=== PATIENT | female | born 1945 ===

== ENCOUNTER 2020-04-09 09:42 | Outpatient (REF) | payer MEDICARE, SELFPAY ==
--- NOTE | 2020-04-09 | MM_ITS ---
EXAMINATION: MM SCREENING DIGITAL BREAST TOMOSYNTHESIS, BILATERAL CLINICAL INFORMATION: Screening. Asymptomatic. The lifetime risk of breast cancer based on the Tyrer-Cuzick Model is 2.4%. COMPARISON: Mammography: April 04, 2019 and studies dating back to May 04, 2012 TECHNIQUE: Digital breast tomosynthesis is performed in both the craniocaudal and mediolateral oblique views along with computer-aided detection (CAD). Synthesized 2D images are generated from the tomosynthesis. FINDINGS: The breasts are heterogeneously dense, which may obscure small masses (ACR BI-RADS breast composition Category c). There are no significant masses, abnormal calcifications, or other abnormalities. MM/MM tomosynthesis screening BI IMPRESSION: There are no significant changes from prior study. ASSESSMENT: BI-RADS 1: Negative RECOMMENDATION: Routine annual mammography screening. This patient's information was entered into a reminder system with a target due date for their next mammogram.
== END 2020-04-09 09:43 | disposition home or self-care (01) ==
LOC: HO.MAMMO 09:42
PROVIDERS: PCP Internal Medicine; Visit Provider Internal Medicine
DX: Z12.31 Encounter for screening mammogram for malignant neoplasm of breast (principal)
CPT/HCPCS: 77063; 77067

== ENCOUNTER 2021-02-20 07:35 | Outpatient (REF) | payer MEDICARE, SELFPAY | END 2021-02-20 07:36 | disposition home or self-care (01) | LOC: HO.HOSX 07:35 | PROVIDERS: Visit Provider Orthopaedic Surgery | DX: M75.102 Unspecified rotator cuff tear or rupture of left shoulder, not specified as traumatic (principal) | CPT/HCPCS: 99202 ==

== ENCOUNTER 2021-08-07 09:28 | Outpatient (REF) | payer MEDICARE, SELFPAY ==
--- NOTE | ~2021-08-07 | MM_ITS ---
EXAMINATION: MM SCREENING DIGITAL BREAST TOMOSYNTHESIS, BILATERAL CLINICAL INFORMATION: Screening. Asymptomatic. The lifetime risk of breast cancer based on the Tyrer-Cuzick Model is 2%. COMPARISON: Mammography: 07/10/2019, 04/04/2019, 01/25/2018 TECHNIQUE: Digital breast tomosynthesis is performed in both the craniocaudal and mediolateral oblique views along with computer-aided detection (CAD). Synthesized 2D images are generated from the tomosynthesis. FINDINGS: There are scattered areas of fibroglandular density (ACR BI-RADS breast composition Category b). There are no significant masses, abnormal calcifications, or other abnormalities. Parenchymal pattern is similar to prior studies. There is no developing density or architectural abnormality. There is fine fibronodular parenchymal pattern similar to prior exams. The axilla and skin contours are unremarkable. No significant changes. MM/MM tomosynthesis screening BI IMPRESSION: No mammographic evidence of malignancy. ASSESSMENT: BI-RADS 1: Negative RECOMMENDATION: Routine annual mammography screening. This patient's information was entered into a reminder system with a target due date for their next mammogram.
== END 2021-08-07 09:29 | disposition home or self-care (01) ==
LOC: HO.MAMMO 09:28
PROVIDERS: Visit Provider Internal Medicine
DX: Z12.31 Encounter for screening mammogram for malignant neoplasm of breast (principal)
CPT/HCPCS: 77063; 77067

== ENCOUNTER 2022-08-13 09:16 | Outpatient (REF) | payer MEDICARE, SELFPAY ==
--- NOTE | ~2022-08-13 | MM_ITS ---
EXAMINATION: MM SCREENING DIGITAL BREAST TOMOSYNTHESIS, BILATERAL CLINICAL INFORMATION: Screening. Asymptomatic. The lifetime risk of breast cancer based on the Tyrer-Cuzick Model is 2.1%. COMPARISON: Mammography: October 07, 2021 and studies dating back to October 21, 2015 TECHNIQUE: Digital breast tomosynthesis is performed in both the craniocaudal and mediolateral oblique views along with computer-aided detection (CAD). Synthesized 2D images are generated from the tomosynthesis. FINDINGS: The breasts are heterogeneously dense, which may obscure small masses (ACR BI-RADS breast composition Category c). There are no significant masses, abnormal calcifications, or other abnormalities. MM/MM tomosynthesis screening BI IMPRESSION: No significant changes ASSESSMENT: BI-RADS 1: Negative RECOMMENDATION: Routine annual mammography screening. This patient's information was entered into a reminder system with a target due date for their next mammogram.
== END 2022-08-13 09:17 | disposition home or self-care (01) ==
LOC: HO.MAMMO 09:16
PROVIDERS: Visit Provider Internal Medicine
DX: Z12.31 Encounter for screening mammogram for malignant neoplasm of breast (principal)
CPT/HCPCS: 77063; 77067

== ENCOUNTER 2023-01-13 11:17 | Emergency (ER) | payer MEDICARE, SELFPAY ==
--- NOTE | ~2023-01-13 | XR_ITS ---
EXAMINATION: XR CHEST CLINICAL INFORMATION: Cough COMPARISON: Chest radiograph from 03/06/2010 TECHNIQUE: 2 views of the chest were obtained. FINDINGS: Blunting of the right costophrenic recess suggesting a small right-sided pleural effusion versus scarring. Chronic interstitial lung markings. No pneumothorax. Trachea is midline. Cardiomediastinal silhouette is not enlarged. Degenerative changes of the thoracolumbar spine. Soft tissues are unremarkable. XR/XR chest 2V IMPRESSION: 1. Blunting of the right costophrenic recess suggesting a small right-sided pleural effusion versus scarring. 2. Chronic interstitial lung markings.
--- NOTE | ~2023-01-13 | XR_ITS ---
EXAMINATION: XR KNEE, RIGHT CLINICAL INFORMATION: Right knee pain. COMPARISON: None available. TECHNIQUE: Four views of the right knee. FINDINGS: Mild tricompartmental degenerative joint changes are seen most pronounced in the medial femoral-tibial compartment. Mild femoral-tibial chondral calcinosis is seen. There is no acute fracture or dislocation. There is no joint effusion. The soft tissues are unremarkable. XR/XR knee RT 2V IMPRESSION: Mild tricompartmental degenerative joint changes most consistent with osteoarthritis.
--- NOTE | ~2023-01-13 | XR_ITS ---
EXAMINATION: XR KNEE, LEFT CLINICAL INFORMATION: Left knee pain. COMPARISON: None available. TECHNIQUE: Four views of the left knee. FINDINGS: Mild tricompartmental degenerative joint changes are seen most pronounced in the medial femoral-tibial compartment with femoral tibial chondrocalcinosis. There is no acute fracture or dislocation. There is no joint effusion. The soft tissues are unremarkable. XR/XR knee LT 2V IMPRESSION: Mild tricompartmental degenerative joint changes most consistent with osteoarthritis. No acute abnormality.
[2023-01-13 11:25] VITALS: BP 145/82; PULSE 97; RESP 18; TEMP 37.2; O2SAT 98; BMI 27.8
--- NOTE | 2023-01-13 11:26 | ED_ITS ---
HPI - General Adult General Chief complaint: General Medical Stated complaint: back pain / knee pain Time Seen by Provider: 01/13/23 13:01 Source: patient Mode of arrival: ambulatory Limitations: no limitations History of Present Illness HPI narrative: Patient comes in the emergency room complaining of bilateral knee pain for 4-5 days. Patient states that about a week ago patient lifted some chairs that she bought, the next day she started having back pain which resolved, then the next day she started having bilateral knee pain. Patient states that she has not had any fever, complaining of some body aches, also complaining of mild dry cough that started around the same time. To the patient's knowledge, she has no history of arthritis. Patient states that at baseline she is very active and likes to go camping. To her knowledge, she has not had any known exposures to ticks Related Data Home Medications Medication Instructions Recorded Confirmed apixaban 5 mg tablet (Eliquis) 5 mg PO BID 02/20/21 azelastine 0.05 % eye drops 1 drp ophthalmic (eye) ONCE 02/20/21 levothyroxine 112 mcg tablet mcg PO 02/20/21 Previous Rx's Medication Instructions Recorded acetaminophen 650 mg 650 mg PO Q8H PRN fever or pain 01/13/23 tablet,extended release #20 tabs tramadol 50 mg tablet 50 mg PO BEDTIME PRN pain #5 tabs 01/13/23 Allergies Allergy/AdvReac Type Severity Reaction Status Date / Time amoxicillin [AMOXICILLIN] Allergy Unknown HIVES Verified 01/13/23 11:25 Iodinated Contrast Media Allergy Unknown HIVES Verified 01/13/23 11:25 [IV DYE, IODINE CONTAINING] meperidine [From DEMEROL] Allergy Unknown SEVERE N/V Verified 01/13/23 11:25 IVP Dye Allergy Unknown unk Uncoded 02/20/21 08:18 Review of Systems Review of Systems: Constitutional : No Weight loss, No Fever, No Chills, No Night Sweats, No Fatigue, No Malaise ENT/Mouth : No Hearing loss, No Ear Pain, No Nasal Congestion, No Sinus Pain, No Hoarseness, No sore throat, No Rhinorrhea, No Swallowing Difficulty Eyes: No Eye Pain, No Swelling, No Redness, No Foreign Body, No Discharge, No Vision Changes Cardiovascular : No Chest Pain, No SOB, No Dyspnea on Exertion, No Orthopnea, No Edema, No Palpitations Respiratory : Complaining of mild dry Cough, No Sputum, No Wheezing, No Smoke Exposure, No Dyspnea Gastrointestinal : No Nausea, No Vomiting, No Diarrhea, No Constipation, No abdominal Pain, No Hematochezia, No Melena Genitourinary : no irregular bleeding, No Dysuria, No Urinary Frequency, No Hematuria, No Urinary Incontinence, No Urgency, No Flank Pain, No Urinary Flow Changes, No Hesitancy Musculoskeletal : Complaining of bilateral knee pain, No Myalgias, No Joint Swelling Skin : No Skin Lesions, No rash Neuro : No Weakness, No Numbness, No Paresthesias, No Loss of Consciousness, No Dizziness, No Headache Psych : No Anxiety/Panic, No Depression, No SI/HI/AH/VH, No Social Issues, Heme/Lymph: No Bruising, No Bleeding,No Lymphadenopathy Endocrine : No Polyuria, No Polydipsia, No Temperature Intolerance PMFSH Past Medical History Medical History History of blood clots Thyroid disorder Surgical History History of kidney surgery Hx laparoscopic cholecystectomy Social History Social History (Updated 02/20/21 @ 08:24 by VELIA Jackson) Alcohol intake: never Patient Tobacco Use Status: Never used Tobacco Advance Directives: No Current occupational status: retired Current occupation: right handed Physical Exam ED Vital Signs: Vital Signs - 24 hr 01/13/23 11:25 Temperature 98.9 F Pulse Rate 97 Respiratory Rate 18 Blood Pressure 145/82 H Pulse Oximetry 98 Oxygen Delivery Method Room Air BMI result Body Mass Index 27.8 Const Other: Appearance: Alert. Oriented X3. No acute distress. Eyes: Pupils equal, round and reactive to light. ENT: Pharynx normal. Neck: Normal inspection. Neck supple. No lymph nodes noted. No crepitus CVS: Normal heart rate and rhythm. Pulses normal. Normal S1 and S2 Respiratory: No respiratory distress. Breath sounds normal. No Wheezing. No rales Abdomen: Soft and nontender. No rigidity. No distention. Skin: Skin warm and dry. Normal skin color. Normal skin turgor. Extremities: No lower extremity edema. Patient has mild bilateral swelling to both knees with no edema, no obvious effusions. Patient's knees are not erythematous, no additional warmth to touch. Patient is able to ambulate with s ome help. Neuro: Oriented X 3. No motor deficit. No sensory deficit. Moving all extremities. No slurred speech. CN 2 through 12 grossly intact Psych: calm, cooperative, normal affect Course Course Course Narrative: RME - 77 y/o with history of PE on Eliquis, hypothyrodism, HTN, s/p nephrectomy in the s who presents to the ER for evaluation of bilateral nontraumatic knee pain and swelling for the last 4 days along with chills, body aches, nausea, dry cough. Started w/ back pain last week having moving chairs which has since resolved. Pain in the knees making it difficult to walk. Normally very active at baseline. No known tick bites but outside often. Plan: lab workup, tick panel, CXR Medical Decision Making Medical Decision Making [facility] Narrative: -my interpretation of labs: White blood cell count 13.1, ESR 86, CRP 16.57, likely an inflammatory process, patient is able to flex and extend the knees, no significant pain to palpation over the knee joints bilaterally, septic joint is not suspected. -my interpretation of bilateral knee x-rays, questionable effusion under the patella, mild osteoarthritis -my interpretation of chest x-ray: No pneumonia -patient declined any pain medication, patient was able to ambulate to the bathroom Differential Diagnosis Differential Diagnoses: The differential diagnosis associated with the presentation includes (Knee effusions, reactive arthritis, tick-borne illnesses, osteoarthritis) Admission/Observation Consideration of admission/observation: Escalation of care including admission/observation considered Lab Data [facility] Lab Attestation statement: I reviewed the patient's lab results. 01/13/23 11:36 01/13/23 11:36 Labs: Lab Results 01/13/23 01/13/23 01/13/23 Range/Units 11:36 11:36 11:36 WBC 13.1 H (4.8-10.8) X10*3/uL RBC 4.55 (4.20-5.50) X10*6/uL Hgb 12.8 (12.0-16.0) g/dl Hct 38.9 (37.0-47.0) % MCV 85.5 (80.0-98.0) fL MCH 28.1 (27.0-33.0) pg MCHC 32.9 (31.0-35.0) g/dl RDW 12.6 (11.0-16.0) % Plt Count 289 (160-400) X10*3/uL MPV 10.3 (9.4-12.3) fL Immature Gran % (Auto) 0.4 (0.0-0.4) % Neut % (Auto) 74.8 H (45-73) % Lymph % (Auto) 14.1 L (20-40) % [place] % (Auto) 10.2 (2-11) % Eos % (Auto) 0.2 (0-4) % Baso % (Auto) 0.3 (0-2) % Lymph # (Auto) 1.9 (1.2-4.9) X10*3/uL [place] # (Auto) 1.3 H (0.1-1.2) X10*3/uL Eos # (Auto) 0.0 (0.0-0.4) X10*3/uL Baso # (Auto) 0.0 (0.0-0.2) X10*3/uL Abs Immat Gran (auto) 0.05 H (0.00-0.03) X10*3/uL Absolute Neuts (auto) 9.8 H (2.0-8.3) x10*3/uL Absolute Nucleated RBC 0.000 (0.0-0.012) X10*3/uL Nucleated RBC % (auto) 0.0 (0.0-0.2) /100WBC ESR 86 H (0-20) MM/HR Sodium 139 (135-145) mmol/L Potassium 4.5 (3.3-5.1) mmol/L Chloride 103 (96-108) mmol/L Carbon Dioxide 24 (22-29) mmol/L Anion Gap 17 (12-20) BUN 14 (9-16) mg/dL Creatinine 0.87 (0.5-1.4) mg/dL Estim Creat Clear Calc 56.9 Estimated GFR > 60 Random Glucose 122 H (60-115) mg/dL Calcium 9.8 (8.4-10.2) mg/dL Magnesium 2.0 (1.6-2.6) mg/dL Total Bilirubin 1.4 H (0.0-1.0) mg/dL Direct Bilirubin 0.5 (0.0-0.5) mg/dL AST 15 (5-31) U/L ALT 12 (0-31) U/L Alkaline Phosphatase 92 (39-117) U/L C-Reactive Protein 16.57 H (< or = 0.50) mg/dL Total Protein 8.2 H (6.5-8.0) g/dL Albumin 4.0 (3.5-5.0) g/dL Independent Interpretation I performed an independent interpretation of an: Plain X-Ray Radiology Impression Discussion of test interpretation with radiology: I have reviewed the radiologist's reading. Radiologist Impression: FINDINGS: Blunting of the right costophrenic recess suggesting a small right-sided pleural effusion versus scarring. Chronic interstitial lung markings. No pneumothorax. Trachea is midline. Cardiomediastinal silhouette is not enlarged. Degenerative changes of the thoracolumbar spine. Soft tissues are unremarkable. XR/XR chest 2V IMPRESSION: 1.? Blunting of the right costophrenic recess suggesting a small right-sided pleural effusion versus scarring. 2.? Chronic interstitial lung markings. FINDINGS: Mild tricompartmental degenerative joint changes are seen most pronounced in the medial femoral-tibial compartment. Mild femoral-tibial chondral calcinosis is seen. There is no acute fracture or dislocation. There is no joint effusion. The soft tissues are unremarkable.? XR/XR knee RT 2V IMPRESSION: Mild tricompartmental degenerative joint changes most consistent with osteoarthritis. Discharge Plan Discharge Clinical Impression: Osteoarthritis of both knees Patient Disposition: Home, Self-Care Instructions: Osteoarthritis (ED) Additional Instructions: Please follow-up with your primary care physician tomorrow. If you have any worsening or new symptoms, please return to the emergency room or call 911 Prescriptions: New acetaminophen 650 mg tablet extended release 650 mg PO Q8H PRN (Reason: fever or pain) Qty: 20 0RF tramadol 50 mg tablet 50 mg PO BEDTIME PRN (Reason: pain) Qty: 5 0RF No Action Eliquis 5 mg tablet 5 mg PO BID levothyroxine 112 mcg tablet PO azelastine 0.05 % drops 1 drp ophthalmic (eye) ONCE
[2023-01-13 11:42] LABS: MANUAL DIFF FLAG NO
[2023-01-13 11:50] LABS: Basophils Percent Auto 0.3 % (0-2); Eosinophils Percent Auto 0.2 % (0-4); Hematocrit 38.9 % (37.0-47.0); Hemoglobin 12.8 g/dl (12.0-16.0); Imm Gran Abs Auto 0.05 X10*3/uL (0.00-0.03); Imm Gran Pct Auto 0.4 % (0.0-0.4); Lymphocytes Absolute Auto 1.9 X10*3/uL (1.2-4.9); Lymphocytes Percent Auto 14.1 % (20-40); Mean Corpuscular HGB Conc 32.9 g/dl (31.0-35.0); Mean Corpuscular Hemoglobin 28.1 pg (27.0-33.0); Mean Corpuscular Volume 85.5 fL (80.0-98.0); Mean Platelet Volume 10.3 fL (9.4-12.3); Monocytes Absolute Auto 1.3 X10*3/uL (0.1-1.2); Monocytes Percent Auto 10.2 % (2-11); Neutrophils Absolute Auto 9.8 x10*3/uL (2.0-8.3); Neutrophils Percent Auto 74.8 % (45-73); Platelet Count 289 X10*3/uL (160-400); Red Blood Count 4.55 X10*6/uL (4.20-5.50); Red Cell Distribution Width 12.6 % (11.0-16.0); White Blood Count 13.1 X10*3/uL (4.8-10.8)
[2023-01-13 11:58] LABS: Alanine Aminotransferase 12 U/L (0-31); Alkaline Phosphatase 92 U/L (39-117); Anion Gap 17 (12-20); Aspartate Amino Transferase 15 U/L (5-31); Bilirubin Direct 0.5 mg/dL (0.0-0.5); Bilirubin Total 1.4 mg/dL (0.0-1.0); Blood Urea Nitrogen 14 mg/dL (9-16); C Reactive Protein 16.57 mg/dL (< or = 0.50); Calcium 9.8 mg/dL (8.4-10.2); Carbon Dioxide 24 mmol/L (22-29); Chloride 103 mmol/L (96-108); Creatinine Clr Calc Pharmacy 56.9; Estimated Glomerular Filt Rate > 60; Glucose Random 122 mg/dL (60-115); Potassium 4.5 mmol/L (3.3-5.1); Sodium 139 mmol/L (135-145); Total Protein 8.2 g/dL (6.5-8.0)
[2023-01-13 12:22] LABS: Erythrocyte Sedimentation Rate 86 MM/HR (0-20)
[2023-01-15 05:33] LABS: Lyme Abs Screen <0.90 index
[2023-01-15 21:19] LABS: A. Phagocytphilium DNA,RT-PCR NOT DETECTED (NOT DETECTED); Babesia Microti DNA, RT-PCR NOT DETECTED (NOT DETECTED); Borrelia Miyamotoi,DNA RT-PCR NOT DETECTED (NOT DETECTED); E.Chaffeensis DNA RT-PCR NOT DETECTED (NOT DETECTED); Lyme(Borrelia ssp)DNA RT-PCR NOT DETECTED (NOT DETECTED)
== END 2023-01-13 15:16 | disposition home or self-care (01) ==
PROVIDERS: Physician Assistant; Emergency Provider Emergency Medicine; PCP Internal Medicine
DX: M54.50 Low back pain, unspecified (principal); M25.562 Pain in left knee; M25.561 Pain in right knee; R05.9 Cough, unspecified; Z79.899 Other long term (current) drug therapy
CPT/HCPCS: 36415; 71046; 73560; 80048; 80076; 83735; 85025; 85652; 86140; 86617; 86618; 87798; 87801; 99283; 99284

== ENCOUNTER 2023-02-15 08:54 | Outpatient (RCR) | payer MEDICARE, SELFPAY ==
[2023-02-15 08:58] VITALS: BP 158/90; PULSE 83; O2SAT 99
--- NOTE | 2023-02-15 10:35 | MHC.PT.EP ---
[facility] [place] [facility] [place] [facility] [place] Office [address] Sofiya Royal [address] [phone] F: [phone] F: [phone] F: [phone] F: [phone] Physical Therapy Plan of Care Date of Evaluation: 02/15/23 Date of Surgery: Diagnosis: This is a 77 yo female presenting to skilled PT with a script for vertigo. Assessment: This is a 77 yo female presenting to skilled PT with a script for vertigo. Patient reporting that for the past 6 months she has been having buzzing in her L ear, I can feel the crystals bouncing around . She went to Dr. Sullivan and had a hearing test done and cleaned her ears which were both normal. She had one attack when she bent over the sink and was very dizzy back in December however this has not happened since. She reports that her symptoms described as rocks bouncing around , it turns my stomach , I get dizzy/lightheaded , unbalance . Denies not noting symptoms during positional changes. Denies imaging, medication regiment or new blood work. Examination shows normal oculomotor tests, (-) VBI B, and WFL cervical AROM. She was (-) for BPPV with joie-hallpike B and roll test B. Balance was normal statically with Jeannette and with movement during DGI. S/S are not consistent with BPPV however patient was noted to have high BP readings throughout our session. She reports that she is supposed to take a BP medication but has not been. I educated her to take her BP again at home and talk to her PCP about her BP. Unless symptoms change patient would not benefit from PT at this time. She was educated to call our office if needed within the next 30 days. Frequency and Duration: The patient will be seen Short Term Goals: NA Cabin Supervisor Goals: NA Treatment Plan: Modalities to reduce pain, spasms and effusion. Manual therapy to restore motion and function. Therapeutic exercise to improve strength and flexibility. Neuromuscular re-education for posture and balance. Therapeutic activities to return to functional activities of daily living. Electronically signed by: Marina Kelly PT Please sign and return to therapist. Thank you for your referral.
--- NOTE | 2023-03-17 08:30 | MHC.PT.DC ---
[facility] [place] Office [place] Office [place] Office [address] Sofiya Royal [address] [phone] F: [phone] F: [phone] F: [phone] F: [phone] Physical Therapy Discharge Report Diagnosis: This is a 77 yo female presenting to skilled PT with a script for vertigo. Date of Surgery: Date of Evaluation: 02/15/23 Date of Discharge: 03/17/23 Treatments to Date: 1 Cancellations to Date: 0 No Shows to Date: 0 Discharge Status: Recommend MD Follow-up Discharge Summary: This is a 77 yo female presenting to skilled PT with a script for vertigo. Patient reporting that for the past 6 months she has been having buzzing in her L ear, I can feel the crystals bouncing around . She went to Dr. Sullivan and had a hearing test done and cleaned her ears which were both normal. She had one attack when she bent over the sink and was very dizzy back in December however this has not happened since. She reports that her symptoms described as rocks bouncing around , it turns my stomach , I get dizzy/lightheaded , unbalance . Denies not noting symptoms during positional changes. Denies imaging, medication regiment or new blood work. Examination shows normal oculomotor tests, (-) VBI B, and WFL cervical AROM. She was (-) for BPPV with joie-hallpike B and roll test B. Balance was normal statically with Jeannette and with movement during DGI. S/S are not consistent with BPPV however patient was noted to have high BP readings throughout our session. She reports that she is supposed to take a BP medication but has not been. I educated her to take her BP again at home and talk to her PCP about her BP. Unless symptoms change patient would not benefit from PT at this time. She was educated to call our office if needed within the next 30 days. Electronically signed by: Marina Kelly PT Please sign and return to therapist. Thank you for your referral.
== END 2023-03-17 08:30 | disposition home or self-care (01) ==
LOC: HO.PTCHIC 08:54
PROVIDERS: PCP Internal Medicine; Visit Provider Otolaryngology
DX: R42 Dizziness and giddiness (principal)
CPT/HCPCS: 97110; 97162

== ENCOUNTER 2023-08-20 09:46 | Emergency (ER) | payer MEDICARE, SELFPAY ==
--- NOTE | ~2023-08-20 | CT_ITS ---
EXAMINATION: CT ABDOMEN AND PELVIS WITHOUT CONTRAST CLINICAL INFORMATION: Lower abdominal pain. Query diverticulitis. COMPARISON: CT abdomen pelvis dated 11/13/2011. TECHNIQUE: Multidetector volumetric imaging was performed from the superior aspect of the liver through the pubic symphysis. Sagittal and coronal reformatted images were obtained on the technologist's workstation. This CT examination was performed using dose optimization techniques as appropriate, variously including the following: *Automated exposure control *Adjustment of mA and/or kV according to patient size (this includes techniques or standardized protocols for targeted exams where dose is matched to indication/reason for exam; i.e. extremities or head) *Use of iterative reconstruction technique DLP: 574 mGy-cm FINDINGS: LUNG BASES: There is a partially visualized scar at the right lung base laterally. The lung bases are otherwise clear. No pleural effusion. Heart size is normal. No pericardial effusion. LIVER, GALLBLADDER, AND BILIARY TREE: The liver is normal in size, shape, and attenuation. No focal hepatic lesion or biliary ductal dilatation is present. The gallbladder is surgically absent. PANCREAS: Unremarkable. SPLEEN: Unremarkable. ADRENAL GLANDS: Unremarkable. KIDNEYS AND URETERS: The right kidney is surgically absent. The left kidney is normal in size, shape, and attenuation. No hydronephrosis, hydroureter, or calculi seen. No perinephric stranding. BLADDER: Unremarkable. GASTROINTESTINAL TRACT: The small and large bowel are normal in caliber. There is sigmoid colon diverticulosis. There is evidence of acute sigmoid colon diverticulitis characterized by pericolonic inflammatory stranding and mild colonic wall thickening best illustrated on images #[id number], series #2. There is no evidence of gross perforation. There is no fluid collection. The appendix is is not definitively identified. ABDOMINAL WALL: No significant hernia is appreciated. LYMPH NODES: No abdominal or pelvic lymphadenopathy by size criteria. VASCULAR: No abdominal aortic aneurysm. There is mild calcific atherosclerotic disease. PELVIC VISCERA: Unremarkable. No adnexal mass. OSSEOUS STRUCTURES: There are degenerative changes of the spine. CT/CT abdomen pelvis wo IV con IMPRESSION: Acute sigmoid colon diverticulitis. There is no evidence of gross perforation. There is no fluid collection. Fleischner guidelines were followed.
[2023-08-20 09:47] VITALS: BP 153/84; PULSE 95; RESP 18; TEMP 36.8; O2SAT 98; BMI 28.2
[2023-08-20 10:04] LABS: MANUAL DIFF FLAG NO
[2023-08-20 10:07] LABS: Basophils Percent Auto 0.3 % (0-2); Eosinophils Absolute Auto 0.1 X10*3/uL (0.0-0.4); Eosinophils Percent Auto 0.5 % (0-4); Hematocrit 40.1 % (37.0-47.0); Hemoglobin 13.3 g/dl (12.0-16.0); Imm Gran Abs Auto 0.05 X10*3/uL (0.00-0.03); Imm Gran Pct Auto 0.3 % (0.0-0.4); Lymphocytes Absolute Auto 1.9 X10*3/uL (1.2-4.9); Lymphocytes Percent Auto 12.7 % (20-40); Mean Corpuscular HGB Conc 33.2 g/dl (31.0-35.0); Mean Corpuscular Hemoglobin 28.1 pg (27.0-33.0); Mean Corpuscular Volume 84.8 fL (80.0-98.0); Mean Platelet Volume 10.2 fL (9.4-12.3); Monocytes Absolute Auto 1.2 X10*3/uL (0.1-1.2); Neutrophils Absolute Auto 11.5 x10*3/uL (2.0-8.3); Neutrophils Percent Auto 78.2 % (45-73); Platelet Count 237 X10*3/uL (160-400); Red Blood Count 4.73 X10*6/uL (4.20-5.50); Red Cell Distribution Width 13.6 % (11.0-16.0); White Blood Count 14.7 X10*3/uL (4.8-10.8)
[2023-08-20 10:20] LABS: Alanine Aminotransferase 12 U/L (0-31); Albumin Level 4.1 g/dL (3.5-5.0); Alkaline Phosphatase 91 U/L (39-117); Anion Gap 13 (12-20); Aspartate Amino Transferase 14 U/L (5-31); Bilirubin Total 1.8 mg/dL (0.0-1.0); Blood Urea Nitrogen 10 mg/dL (9-16); Calcium 9.4 mg/dL (8.4-10.2); Carbon Dioxide 25 mmol/L (22-29); Chloride 108 mmol/L (96-108); Creatinine Clr Calc Pharmacy 50.3; Estimated Glomerular Filt Rate 53; Glucose Random 133 mg/dL (60-115); Lipase 15 U/L (8-78); Potassium 3.9 mmol/L (3.3-5.1); Sodium 142 mmol/L (135-145); Total Protein 7.8 g/dL (6.5-8.0)
[2023-08-20 11:25] LABS: Appearance Urine Cloudy; Color Urine Dark Yellow; Glucose Urine UA Negative (Negative); Leukocyte Esterase Urine Large (3+) (Negative); Nitrite Urine Negative (Negative); PH 5.5 (5.0-9.0); UMIC TRIGGER UACC YES; Urine Blood Moderate (2+) (Negative); Urine Ketones Trace mg/dL (Negative); Urine Protein 30 (1+) mg/dL (Neg-Trace)
[2023-08-20 11:33] LABS: Bacteria Urine None Seen (None Seen); UACC Culture Trigger YES; WBC Urine >50 /HPF (0-5)
[2023-08-20 12:24] LABS: Influenza A PCR NEGATIVE (Negative); Influenza B PCR NEGATIVE (Negative); Resp Syncy Virus RNA Qual PCR NEGATIVE (Negative); SARS COV2 PCR INHOUSE NEGATIVE (Negative)
[2023-08-20 14:53] VITALS: BP 180/93; PULSE 95; RESP 18; TEMP 37.1; O2SAT 98
--- NOTE | 2023-08-20 14:53 | ED.ABDPAIN ---
HPI - Abdominal Pain General Chief Complaint: Abdominal Pain Stated Complaint: abd pain Time Seen by Provider: 08/20/23 18:03 Source: patient and family Mode of arrival: ambulatory Limitations: no limitations History of Present Illness HPI narrative: 78-year-old female with a past medical history of hypothyroidism, hypertension, history of DVT/PE on Eliquis , solitary kidney presents to the ER with 2 days of lower abdominal pain with no associated fever, vomiting, constipation, diarrhea or urinary symptoms. Her last BM was yesterday and normal. She does have a history of having a cholecystectomy but denies any other abdominal surgical history. Related Data Home Medications Medication Instructions Recorded Confirmed apixaban 5 mg tablet (Eliquis) 5 mg PO BID 02/20/21 azelastine 0.05 % eye drops 1 drp ophthalmic (eye) ONCE 02/20/21 levothyroxine 112 mcg tablet mcg PO 02/20/21 Previous Rx's Medication Instructions Recorded acetaminophen 650 mg 650 mg PO Q8H PRN fever or pain 01/13/23 tablet,extended release #20 tabs tramadol 50 mg tablet 50 mg PO BEDTIME PRN pain #5 tabs 01/13/23 levofloxacin 500 mg tablet 500 mg PO Q24H 7 days #7 tabs 08/20/23 metronidazole 500 mg tablet 500 mg PO BID 7 days #14 tabs 08/20/23 Allergies Allergy/AdvReac Type Severity Reaction Status Date / Time amoxicillin [AMOXICILLIN] Allergy Unknown HIVES Verified 08/20/23 09:52 Iodinated Contrast Media Allergy Unknown HIVES Verified 08/20/23 09:52 [IV DYE, IODINE CONTAINING] meperidine [From DEMEROL] Allergy Unknown SEVERE N/V Verified 08/20/23 09:52 IVP Dye Allergy Unknown unk Uncoded 02/20/21 08:18 Review of Systems Review of Systems Yes all other systems are reviewed and are negative Constitutional: Reports no additional constitutional complaints, Denies body ache(s), Denies chills, Denies fever(s), Denies headache(s) and Denies weakness Eyes: Reports no additional eye complaints and Denies change in vision Reports system reviewed and no additional complaints, except as documented, Denies dizziness, Denies headache(s), Denies nasal congestion, Denies nasal discharge and Denies neck pain Cardiovascular: Reports no additional cardiovascular complaints, Denies chest pain, Denies leg edema and Denies dyspnea Respiratory: Reports no additional respiratory complaints, Denies cough and Denies dyspnea Gastrointestinal: Reports no additional gastrointestinal complaints, Reports abdominal pain, Denies diarrhea, Denies nausea and Denies vomiting Genitourinary: Reports no additional female genitourinary complaints and Denies urinary incontinence Musculoskeletal: Reports no additional musculoskeletal complaints, Denies back pain, Denies arthralgias, Denies joint swelling, Denies neck pain, Denies numbness and Denies tingling Skin/Breast: Reports system reviewed and no additional complaints, except as docu and Denies rash Reports system reviewed and no additional complaints, except as documented, Denies Abnormal speech present, Denies dizziness, Denies headache(s), Denies numbness, Denies tingling and Denies weakness PMFSH Past Medical History Attestation statement: The following information was validated with the patient. Source: old records reviewed and nursing notes reviewed Medical History History of blood clots Thyroid disorder Surgical History History of kidney surgery Hx laparoscopic cholecystectomy Social History Social History Alcohol intake: never Patient Tobacco Use Status: Never used Tobacco Use of substances other than those prescribed or required for medical reasons: No Advance Directives: No Advance Directives Information Provided: No Current occupational status: retired Current occupation: right handed Physical Exam ED Vital Signs: Vital Signs - 24 hr 08/20/23 09:47 08/20/23 14:53 08/20/23 19:18 Temperature 98.3 F 98.8 F 97.9 F Pulse Rate 95 95 84 Respiratory Rate 18 18 17 Blood Pressure 153/84 H 180/93 H 140/68 H Pulse Oximetry 98 98 95 Oxygen Delivery Method Room Air Room Air Room Air 08/20/23 20:59 Temperature 97.8 F Pulse Rate 80 Respiratory Rate 17 Blood Pressure 165/82 H Pulse Oximetry 98 Oxygen Delivery Method Room Air BMI result Body Mass Index 28.2 Const General: cooperative, healthy appearing, comfortable and no acute distress Orientation/consciousness: patient oriented x3 Limitations: no limitations HENMT Head: Yes normal to inspection Ears: hearing grossly normal bilaterally General nose exam: Normal external nose present Face and sinus: Yes normal facial exam Mouth: Normal oral and palatal mucosa present Throat: Yes posterior oropharynx normal Eyes General: appearance normal, both eyes and all related structures Pupils: Equal, round and reactive pupils present Neck Neck: Yes normal visual inspection Chest Chest palpation & inspection: normal inspection of the chest Resp Effort & Inspection: normal respiratory effort Auscultation: clear to auscultation bilaterally Cardio Rate: regular rate Rhythm: regular rhythm Peripheral pulses: Peripheral pulses 2+ throughout GI Inspection: Yes normal to inspection Palpation (GI): Soft to palpation and Tenderness to palpation present (GI) (Diffusely tender more focal in the lower quadrants with no rebound or guard) Auscultation: normal bowel sounds Back/Spine/Pelvis Thoracic/Lumbar Spine: thoracic and lumbar spine normal to inspection Skin General skin exam: no rashes or lesions noted Neuro General: patient oriented x3, no focal motor deficits and normal sensation to monofilament Cranial nerves: Yes Equal, round and reactive pupils present Cognition (Neuro): normal cognition Speech: No Abnormal speech present Gait exam (Neuro): Normal gait present Motor exam (neuro): 5/5 motor strength present throughout Extrem General: Yes normal to inspection Course Course Course Narrative: This is an RME: Additional HPI, ROS, PE not included below will be deferred to primary provider. Patient is a 78 year old female presenting for ABD pain, diffuse lower pain with bloating and a dropping sensation in her ABD. has associated nausea, poor PO intake. denies genitourinary symptoms, constipation, diarrhea, hematochezia, melena, back pain, chest pain. Plan: Labs, urinalysis Reevaluation(s) Reevaluation #1: CT shows acute sigmoid colon diverticulitis with no evidence of abscess. Patient is tolerating p.o.. Pain is tolerable. Labs are unremarkable with exception of mild leukocytosis. Patient will be discharged home with an oral antibiotic with recommendations to take them as prescribed return for any worsening symptoms. Medical Decision Making Medical Decision Making MDM Narrative: 78-year-old female with a past medical history of hypothyroidism, hypertension, solitary kidney presents to the ER with 2 days of lower abdominal pain with no associated fever, vomiting, constipation, diarrhea or urinary symptoms. Her last BM was yesterday and normal. She does have a history of having a cholecystectomy but denies any other abdominal surgical history. Diffuse tenderness but more focal in the lower quadrants with no guarding or rebound tenderness. Will need labs, UA, CT Differential Diagnosis Differential Diagnoses: The differential diagnosis associated with the presentation includes UTI, diverticulitis Admission/Observation Consideration of admission/observation: Escalation of care including admission/observation considered Lab Data MDM Lab Attestation statement: I reviewed the patient's lab results. Leukocytosis UTI 08/20/23 10:00 08/20/23 10:00 Labs: Lab Results 08/20/23 08/20/23 Range/Units 10:00 11:13 WBC 14.7 H (4.8-10.8) X10*3/uL RBC 4.73 (4.20-5.50) X10*6/uL Hgb 13.3 (12.0-16.0) g/dl Hct 40.1 (37.0-47.0) % MCV 84.8 (80.0-98.0) fL MCH 28.1 (27.0-33.0) pg MCHC 33.2 (31.0-35.0) g/dl RDW 13.6 (11.0-16.0) % Plt Count 237 (160-400) X10*3/uL MPV 10.2 (9.4-12.3) fL Immature Gran % (Auto) 0.3 (0.0-0.4) % Neut % (Auto) 78.2 H (45-73) % Lymph % (Auto) 12.7 L (20-40) % [place] % (Auto) 8.0 (2-11) % Eos % (Auto) 0.5 (0-4) % Baso % (Auto) 0.3 (0-2) % Lymph # (Auto) 1.9 (1.2-4.9) X10*3/uL [place] # (Auto) 1.2 (0.1-1.2) X10*3/uL Eos # (Auto) 0.1 (0.0-0.4) X10*3/uL Baso # (Auto) 0.0 (0.0-0.2) X10*3/uL Abs Immat Gran (auto) 0.05 H (0.00-0.03) X10*3/uL Absolute Neuts (auto) 11.5 H (2.0-8.3) x10*3/uL Absolute Nucleated RBC 0.000 (0.0-0.012) X10*3/uL Nucleated RBC % (auto) 0.0 (0.0-0.2) /100WBC Sodium 142 (135-145) mmol/L Potassium 3.9 (3.3-5.1) mmol/L Chloride 108 (96-108) mmol/L Carbon Dioxide 25 (22-29) mmol/L Anion Gap 13 (12-20) BUN 10 (9-16) mg/dL Creatinine 1.01 (0.5-1.4) mg/dL Estim Creat Clear Calc 50.3 Estimated GFR 53 Random Glucose 133 H (60-115) mg/dL Calcium 9.4 (8.4-10.2) mg/dL Total Bilirubin 1.8 H (0.0-1.0) mg/dL AST 14 (5-31) U/L ALT 12 (0-31) U/L Alkaline Phosphatase 91 (39-117) U/L Total Protein 7.8 (6.5-8.0) g/dL Albumin 4.1 (3.5-5.0) g/dL Lipase 15 (8-78) U/L Urine Color Dark Yellow Urine Appearance Cloudy Urine pH 5.5 (5.0-9.0) Ur Specific [place] 1.020 (1.005-1.025) Urine Protein 30 (1+) H (Neg-Trace) mg/dL Urine Glucose (UA) Negative (Negative) mg/dL Urine Ketones Trace (Negative) mg/dL Urine Blood Moderate (2+) H (Negative) Urine Nitrite Negative (Negative) Ur Leukocyte Esterase Large (3+) H (Negative) Urine RBC 6-10 H (0-2) /HPF Urine WBC >50 H (0-5) /HPF Ur Squamous Epith Cells 6-10 (0-2) /HPF Urine Bacteria None Seen (None Seen) Hyaline Casts 3-5 (0-2) /LPF Influenza Type A (PCR) NEGATIVE (Negative) Influenza Type B (PCR) NEGATIVE (Negative) RSV RNA Qual (PCR) NEGATIVE (Negative) SARS-CoV-2 RNA (RT-PCR) NEGATIVE (Negative) Independent Interpretation I performed an independent interpretation of an: CT Scan Interpretation: I independently viewed the CT scan agree with the radiology report Radiology Impression Discussion of test interpretation with radiology: I have reviewed the radiologist's reading. Radiologist Impression: Launch?Image [address] [id number] [address] Scan Report Signed Patient: Juanita Jenkins MR#: [id number] : 1945 Acct:[id number] Age/Sex: 78 / F ADM Date: 08/20/23 Loc: HO.ED Attending Dr: Ordering Physician: Idalmis Oliveira NP Date of Service: 08/20/23 Procedure(s): CT abdomen pelvis wo IV con Accession Number(s): [id number] cc: Carlito Noyola MD; Idalmis Oliveira NP~ EXAMINATION: CT ABDOMEN AND PELVIS WITHOUT CONTRAST CLINICAL INFORMATION: Lower abdominal pain. Query diverticulitis. COMPARISON: CT abdomen pelvis dated 11/13/2011. TECHNIQUE: Multidetector volumetric imaging was performed from the superior aspect of the liver through the pubic symphysis. Sagittal and coronal reformatted images were obtained on the technologist's workstation. This CT examination was performed using dose optimization techniques as appropriate, variously including the following: *Automated exposure control *Adjustment of mA and/or kV according to patient size (this includes techniques or standardized protocols for targeted exams where dose is matched to indication/reason for exam; i.e. extremities or head) *Use of iterative reconstruction technique DLP: 574 mGy-cm FINDINGS: LUNG BASES: There is a partially visualized scar at the right lung base laterally. The lung bases are otherwise clear. No pleural effusion. Heart size is normal. No pericardial effusion. LIVER, GALLBLADDER, AND BILIARY TREE: The liver is normal in size, shape, and attenuation. No focal hepatic lesion or biliary ductal dilatation is present. The gallbladder is surgically absent. PANCREAS: Unremarkable. SPLEEN: Unremarkable. ADRENAL GLANDS: Unremarkable. KIDNEYS AND URETERS: The right kidney is surgically absent. The left kidney is normal in size, shape, and attenuation. No hydronephrosis, hydroureter, or calculi seen. No perinephric stranding. BLADDER: Unremarkable. GASTROINTESTINAL TRACT: The small and large bowel are normal in caliber. There is sigmoid colon diverticulosis. There is evidence of acute sigmoid colon diverticulitis characterized by pericolonic inflammatory stranding and mild colonic wall thickening best illustrated on images #[id number], series #2. There is no evidence of gross perforation. There is no fluid collection. The appendix is is not definitively identified. ABDOMINAL WALL: No significant hernia is appreciated. LYMPH NODES: No abdominal or pelvic lymphadenopathy by size criteria. VASCULAR: No abdominal aortic aneurysm. There is mild calcific atherosclerotic disease. PELVIC VISCERA: Unremarkable. No adnexal mass. OSSEOUS STRUCTURES: There are degenerative changes of the spine. CT/CT abdomen pelvis wo IV con IMPRESSION: Acute sigmoid colon diverticulitis. There is no evidence of gross perforation. There is no fluid collection. Fleischner guidelines were followed. Independent Historian Clinical information obtained from an independent historian. History obtained from or confirmed by: Spouse Medications Administered Discontinued Medications Generic Name Dose Route Start Last Admin Trade Name Freq PRN Reason Stop Dose Admin Sodium Chloride 1,000 mls @ 999 mls/hr 08/20/23 18:21 08/20/23 20:58 Ns IV 08/20/23 19:21 Infused .Q1H1M STA Infusion Levofloxacin 750 mg 08/20/23 20:02 08/20/23 20:53 Levofloxacin 750 Mg Tablet PO 08/20/23 20:03 750 mg ONCE ONE Administration Metronidazole 500 mg 08/20/23 20:02 08/20/23 20:53 Metronidazole 500 Mg Tablet PO 08/20/23 20:03 500 mg ONCE ONE Administration Discharge Plan Discharge Clinical Impression: Diverticulitis, Acute UTI Patient Disposition: Home, Self-Care Instructions: Diverticulitis (ED), Diverticulitis Diet (ED), Urinary Tract Infection in Older Adults (ED) Prescriptions: New metronidazole 500 mg tablet 500 mg PO BID 7 Days Qty: 14 0RF levofloxacin 500 mg tablet 500 mg PO Q24H 7 Days Qty: 7 0RF No Action acetaminophen 650 mg tablet extended release 650 mg PO Q8H PRN (Reason: fever or pain) Qty: 20 0RF tramadol 50 mg tablet 50 mg PO BEDTIME PRN (Reason: pain) Qty: 5 0RF Eliquis 5 mg tablet 5 mg PO BID levothyroxine 112 mcg tablet PO azelastine 0.05 % drops 1 drp ophthalmic (eye) ONCE Referrals: Carlito Noyola MD [Primary Care Provider] - 1 week Interventions: ED Discharge Assessment Last Done: 08/20/23 20:59 Discharge Date/Time: 08/20/23 21:00
[2023-08-20] MEDS: 0.9 % Sodium Chloride 1,000 ML 999 ML IV (18:44)
[2023-08-20 19:18] VITALS: BP 140/68; PULSE 84; RESP 17; TEMP 36.6; O2SAT 95
--- NOTE | 2023-08-20 19:18 | PC.NURSE ---
this rn assumed care of pt. pt resting in stretcher, no acute distress noted. vss.
--- NOTE | 2023-08-20 19:55 | PC.NURSE ---
this rn assisted pt to bathroom, pt ambulated with steady gait. denies chest pain and SOB.
[2023-08-20] MEDS: levoFLOXacin 750 MG TABLET PO (20:53)
[2023-08-20] MEDS: metroNIDAZOLE 500 MG TABLET PO (20:53)
[2023-08-20 20:59] VITALS: BP 165/82; PULSE 80; RESP 17; TEMP 36.6; O2SAT 98
== END 2023-08-20 21:00 | disposition home or self-care (01) ==
PROVIDERS: Nurse Practitioner Family; Emergency Provider Internal Medicine; PCP Internal Medicine
DX: K57.32 Diverticulitis of large intestine without perforation or abscess without bleeding (principal); N39.0 Urinary tract infection, site not specified; I10 Essential (primary) hypertension; Q60.0 Renal agenesis, unilateral; Z86.718 Personal history of other venous thrombosis and embolism; Z86.711 Personal history of pulmonary embolism; Z79.01 Long term (current) use of anticoagulants; Z90.49 Acquired absence of other specified parts of digestive tract; Z11.52 Encounter for screening for COVID-19; Z20.828 Contact with and (suspected) exposure to other viral communicable diseases
CPT/HCPCS: 0241U; 36415; 74176; 80053; 81001; 83690; 85025; 87086; 96360; 96361; 99284; 99285